=== PATIENT | male | born 1955 | race Caucasian/White ===

== ENCOUNTER 2016-11-10 10:16 | Day surgery (SDC) | payer OTHER ==
[~2016-11-10] VITALS: Ht 182.9 cm; Wt 87.0 kg
[~2016-11-10 10:16] MED LIST: ASPI1TAB69 PO; CARV12.52 PO; ISOS10TA3 PO; PRAS10TA PO; PRIL20CA9 PO
[2016-11-10] MEDS ORDERED: NS 1000P @30 MLS/HR (KVO) IV SCH (10:45)
[2016-11-10 10:51] VITALS: BP 127/76; PULSE 59; RESP 18; TEMP 97.8; O2SAT 95
[2016-11-10 10:51] LABS: AUTOMATED NEUTROPHIL # 5.3 TH/MM3 (1.8-7.7); BASOPHIL % 0.5 % (0.0-2.0); EOSINOPHIL # 0.2 TH/MM3 (0-0.4); EOSINOPHIL % 2.5 % (0.0-4.0); HEMATOCRIT 49.3 % (39.0-51.0); HEMO FLAGS DIFF FINAL; LYMPHOCYTE # 1.5 TH/MM3 (1.0-4.8); MEAN CELL VOLUME 87.2 FL (80.0-100.0); MEAN CORPUSCULAR HEMOGLOBIN 29.7 PG (27.0-34.0); PLATELET COUNT 300 TH/MM3 (150-450); RED BLOOD COUNT 5.66 MIL/MM3 (4.50-5.90); RED CELL DISTRIBUTION WIDTH 13.1 % (11.6-17.2); WHITE BLOOD COUNT 7.5 TH/MM3 (4.0-11.0)
[2016-11-10 11:02] LABS: APTT (PATIENT) 27.7 SEC (24.3-30.1); PROTHROMBIN TIME - PATIENT 10.6 SEC (9.8-11.6)
[2016-11-10 11:04] LABS: BICARBONATE 27.2 MEQ/L (21.0-32.0); POTASSIUM 4.2 MEQ/L (3.5-5.1)
[2016-11-10] MEDS ORDERED: PRAV40TA PO (11:05)
[2016-11-10] MEDS ORDERED: ISOS30TA3 PO (11:05)
[2016-11-10] MEDS ORDERED: NITR400A5 SL (11:05)
[2016-11-10] MEDS ORDERED: RANO500 PO (11:05)
[2016-11-10] MEDS ORDERED: COQ-150C PO (11:05)
[2016-11-10] MEDS ORDERED: MIDAZOLAM HCL 2 MG/2 ML VIAL ONE ×2 (13:29→13:57)
[2016-11-10] MEDS ORDERED: HEPARIN-NS/PF INJ 500 ML ONE (13:29)
--- NOTE | 2016-11-10 13:58 | EKG ---
Date Performed: 11/10/2016 Time Performed: 10:56:32 PTAGE: 60 years EKG: Possible ectopic atrial bradycardia with interpolated PVC(s) Leftward axis Since previous t racing, no significant change noted Borderline ECG PREVIOUS TRACING : 10/16/2016 11.09 DOCTOR: Pavel Klein Interpretating Date/Time 11/10/2016 13:55:53
[2016-11-10] MEDS ORDERED: IOHEXOL 350 MG/ML 100 ML BTL (for Cath Lab) OTHER ONE (14:00)
[2016-11-10] MEDS ORDERED: SODIUM CHLOR 0.9% 1000 ML INJ 500 ML IV SCH (15:00)
[2016-11-10 15:32] LABS: HDL CHOLESTEROL 56.9 MG/DL (40.0-60.0)
--- NOTE | 2016-11-11 06:46 | MA ---
cc: HILARY CALDERON DATE 11/10/2016 INDICATIONS Unstable angina, class 3 angina, history of myocardial infarction and LAD stenting, the patient is on two anti-anginal medications. PROCEDURE PERFORMED Retrograde left heart catheterization with left ventriculography and selective coronary angiography. ACCESS SITE Right femoral artery using ultrasound guidance. EQUIPMENT USED 5 [place] pigtail catheter, 5 [place] JL4 and AR modified coronary artery catheters. MEDICATIONS Versed, IV Fentanyl IV CONTRAST Omnipaque 80 cc COMPLICATIONS None METHOD OF HEMOSTASIS Manual compression RESULTS HEMODYNAMICS Heart rate 73 beats per minute Left ventricular end-diastolic pressure 12 mmHg Left ventricle 100/12 Aorta 100/64/81 LEFT VENTRICULOGRAPHY Ejection fraction 65%. Wall motion normal. No mitral regurgitation. CORONARY ANGIOGRAPHY Left main coronary artery patent. Left anterior descending artery has 20% stenosis in its proximal portion, 40% stenosis in the mid portion in-stent and 40% stenosis in the mid portion distally to the stents. D-1 has 30% proximal stenosis. Left circumflex artery is patent. OM-1 is a large vessel with 80% stenosis in a very small circumflex branch. OM-2 is otherwise patent. Ramus intermedius is patent. Right coronary artery is a dominant vessel with 10% stenosis in the mid portion. PDA has 60% ostial stenosis. PLV is patent. DIAGNOSIS 1. Moderate non-obstructive coronary artery disease. 2. Preserved left ventricular systolic function. DISPOSITION Mr. Seaman will continue his current medical program including aggressive modification of his cardiac risk factors and anti-anginal therapy. His left ventricular function remains preserved. He will be discharged home later today. I will see him back for followup in our office after discharge. MD TIMOTHY Serra/PIOTR /2:29 PM /6:32 AM EVANS
== END 2016-11-10 18:45 | disposition home or self-care (01) ==
LOC: HDOC 10:16 → HDIC 10:17 → HDOC 18:45
PROVIDERS: ATTEND Internal Medicine Interventional Cardiology
DX: I20.0 Unstable angina (principal); I25.2 Old myocardial infarction
CPT/HCPCS: 80048; 80061; 85025; 85610; 85730; 93005; 93458; C1769; C1893; J1644; J2250; J3010; Q9967

== ENCOUNTER → 2017-01-08 | Outpatient (CLI) | payer OTHER ==
[~2017-01-08] MED LIST changes: +COQ-150C PO; +ISOS30TA3 PO; +NITR400A5 SL; +PRAV40TA PO; +RANO500 PO
--- NOTE | 2017-01-21 11:50 | CARDEX ---
CARDIOPULMONARY EXERCISE REPORT IMPRESSION: Mr. Seaman performed a maximal pulmonary stress test utilizing a step-exercise protocol monitoring several cardiopulmonary parameters including gas exchange. His overall aerobic capacity is normal at 91%. He did experience dyspnea with the procedure but felt that he could have gone a little further. His "R" value did rise above 1 though indicating a very good effort. His pulmonary response was normal. He had no oxygen de-saturation. He was in the range of 93% to 96% throughout the procedure and had very adequate pulmonary reserve at the end of the procedure 56% of predicted actually. His ventilation perfusion ratios were normal before, during and after exercise and his pulmonary capacitance was also normal indicating normal pulmonary perfusion. . His cardiovascular response was abnormal in that despite a high level of work he only achieved 65% of his predicted maximum heart rate. Although his end-tidal C02 did rise normally throughout the first 2 minutes of exercise, during the last minute of exercise his end tidal C02, an indirect indicator of stroke volume, and his heart rate were completely flat. His heart rate never vikas above 106 with a maximum predicted of 156. Again, this indicates some kind of chronotropic incompetence whether related to the heart or his medications. He experienced no chest pain or light-headedness. He did have unifocal PVCs but otherwise no notable arrhythmia. In summary, Mr. Seaman has a normal aerobic capacity of 91% of predicted with no obvious pulmonary dysfunction during exercise. The most notable abnormality was at higher levels of work during the last minute neither his heart rate nor end-tidal C02 vikas and this may, in fact, be a cause of his dyspnea. Gerri KENDALL M.D. lt 01/21/17 CC: Dr. Yoko Rand
== END ==
LOC: HRSP 13:01
PROVIDERS: ATTEND Internal Medicine
DX: R06.02 Shortness of breath (principal)
CPT/HCPCS: 94621